=== PATIENT | male | born 1990 | race Caucasian/White ===

== ENCOUNTER 2017-09-20 00:38 | Emergency (ER) | payer OTHER ==
[~2017-09-20] VITALS: Ht 160 cm; Wt 65.0 kg
[2017-09-20 00:47] VITALS: BP 151/87; PULSE 101; RESP 18; TEMP 98.1; O2SAT 96
--- NOTE | 2017-09-20 01:37 | PD ---
HPI Chief Complaint: Alcohol/Drug Intoxication Time Seen by Provider: 01:10 Travel History International Travel<30 days: No Contact w/Intl Traveler<30days: No Traveled to known affect area: No History of Present Illness HPI Patient was at [email or web address]. According to report he fell asleep at the table. Police were called and patient was then stood up and made him to leave he then started to urinating in front of the restaurant and the police brought him to the ER. In the ER patient is obviously intoxicated but able to converse mild slurring of his words and he is searching his phone to find a ride and 1. he tries to leave we bring him back in redirect him explaining that he is a danger to himself and others in this state and he cannot leave without someone pick him up and can assure his safety delivery back on is cooperative but wants to leave [facility] Past Medical History Medical History: Denies Significant Hx Tetanus Vaccination: Unknown Influenza Vaccination: No Past Surgical History Surgical History: No Previous Surgery Social History Alcohol Use: Yes (OCC) Tobacco Use: Yes Substance Use: No Allergies-Medications (Allergen,Severity, Reaction): Coded Allergies: No Known Allergies (Unverified , 09/20/17) Reported Meds & Prescriptions Reported Meds & Active Scripts Active No Active Prescriptions or Reported Medications Physical Exam Narrative GENERAL: pt is intoxicated but able to speak clearly and articulate . SKIN: Warm and dry. HEAD: Atraumatic. Normocephalic. EYES: Pupils equal and round. No scleral icterus. No injection or drainage. ENT: No nasal bleeding or discharge. Mucous membranes pink and moist. NECK: Trachea midline. No JVD. CARDIOVASCULAR: Regular rate and rhythm. RESPIRATORY: No accessory muscle use. Clear to auscultation. Breath sounds equal bilaterally. GASTROINTESTINAL: Abdomen soft, non-tender, nondistended. Hepatic and splenic margins not palpable. MUSCULOSKELETAL: Extremities without clubbing, cyanosis, or edema. No obvious deformities. NEUROLOGICAL: Awake and alert. No obvious cranial nerve deficits. Motor grossly within normal limits. Five out of 5 muscle strength in the arms and legs. Normal speech. PSYCHIATRIC: Appropriate mood and affect; insight and judgment normal. Data Data Last Documented VS Vital Signs Date Time Temp Pulse Resp B/P (MAP) Pulse Ox O2 Delivery O2 Flow Rate FiO2 09/20/17 00:47 98.1 101 18 151/87 (108) 96 Orders Orders Ed Discharge Order (09/20/17 03:36) MDM Medical Decision Making Medical Screen Exam Complete: Yes Emergency Medical Condition: Yes Differential Diagnosis Alcohol intoxication without complication Narrative Course Patient is redirected multiple times lying the bed and go to sleep he appears to intoxicated to leave on his own recognizance he has no one to call to pick him up after 2-1/2 hours in the ER he is able to ambulate without ataxia he is talking without slurring he is appropriate for discharge Diagnosis Primary Impression: Alcohol intoxication Patient Instructions: Alcohol Intoxication (ED), General Instructions Scripts No Active Prescriptions or Reported Meds Disposition: 01 DISCHARGE HOME Condition: Ivan Alfaro MD Sep 20, 2017 01:37
== END 2017-09-20 03:38 | disposition home or self-care (01) ==
LOC: NEPC 00:38
DX: F10.920 Alcohol use, unspecified with intoxication, uncomplicated (principal)
CPT/HCPCS: 99283